=== PATIENT | male | born 1945 | race Caucasian/White ===

== ENCOUNTER 2021-12-25 05:03 | Day surgery (SDC) | payer OTHER, BC ==
[2021-12-24 13:15] VITALS: BMI 28.5
[2021-12-25 10:19] VITALS: TEMP 97.7
[2021-12-25 10:47] VITALS: BP 143/88; PULSE 74
== END 2021-12-25 10:59 | disposition home or self-care (01) ==
LOC: JASU-ENDO 05:03
PROVIDERS: ATTEND Internal Medicine Gastroenterology
PROC: 0DBP8ZX Excision of Rectum, Via Natural or Artificial Opening Endoscopic, Diagnostic (ICD-10-PCS; principal; 2021-12-25 10:00)
DX: Z12.11 Encounter for screening for malignant neoplasm of colon (principal); Z86.010 Personal history of colon polyps; K62.1 Rectal polyp; K64.8 Other hemorrhoids; K64.4 Residual hemorrhoidal skin tags
CPT/HCPCS: 88305-TC

== ENCOUNTER 2025-04-26 09:55 | Day surgery (SDC) | payer OTHER, BC ==
[2025-04-24 14:36] VITALS: BMI 28.5
[2025-04-26] MEDS ORDERED: LIDOCAINE 1% P/F 10 MG/ML VIAL ONE ×2 (10:26→11:11)
[2025-04-26] MEDS ORDERED: CARBACHOL 0.01% INTRA-OCULAR 1.5 ML VIAL ONE ×2 (10:26→11:11)
[2025-04-26] MEDS ORDERED: TETRACAINE 0.5% OPHTH SOLN 2 ML BOTTLE ONE ×2 (10:26→11:11)
[2025-04-26] MEDS ORDERED: NEO/POLYMYX B SULF/DEXAMETH OPHTHALMIC 5ML BOTTLE ONE ×2 (10:26→11:11)
[2025-04-26] MEDS ORDERED: BSS (NA/CA/MG/K) BALANCED SALT SOLUTION OPHTH SOLN 15 ML BOTTLE ONE ×2 (10:26→11:11)
[2025-04-26] MEDS: CIPROFLOXACIN 0.3% EYE DROPS 5 ML BOTTLE ONE (10:35)
[2025-04-26] MEDS: TROPICAMIDE 1% 3 ML EYE DROPS ONE (10:35)
[2025-04-26] MEDS: PHENYLEPHRINE 2.5% OPTHALMIC DROP 2ML BOTTLE ONE (10:35)
[2025-04-26] MEDS: CYCLOPENTOLATE 2% OPHTH SOLN 2 ML BOTTLE ONE (10:35)
[2025-04-26] MEDS ORDERED: MIDAZOLAM HCL 2 MG/2 ML SINGLE DOSE VIAL ONE (11:06)
[2025-04-26] MEDS ORDERED: EPINEPHrine 1:1000 P/F - 1 MG/ML AMP ONE (11:11)
[2025-04-26 17:47] VITALS: TEMP 97.2
[2025-04-26 17:51] VITALS: BP 130/72; PULSE 69; RESP 17
== END 2025-04-26 13:15 | disposition home or self-care (01) ==
LOC: FASU 09:55
PROVIDERS: ATTEND Ophthalmology
PROC: 08RK3JZ Replacement of Left Lens with Synthetic Substitute, Percutaneous Approach (ICD-10-PCS; principal; 2025-04-26 12:30)
DX: H26.8 Other specified cataract (principal)
CPT/HCPCS: 66984; V2632